=== PATIENT | female | born 1950 | race Caucasian/White ===

== ENCOUNTER 2020-02-12 07:36 | Inpatient (IN) | payer OTHER ==
[~2020-02-12] VITALS: Ht 149.9 cm; Wt 44.0 kg
== END 2020-02-24 15:33 | disposition home or self-care (01) | DRG 373 ==
LOC: ER 07:36 → SEC-K 15:28 → SURH 15:28 → EDBD 02-24 15:33
PROVIDERS: ADMIT Surgery; ATTEND Surgery
PROC: BW21Y0Z Computerized Tomography (CT Scan) of Abdomen and Pelvis using Other Contrast, Unenhanced and Enhanced (ICD-10-PCS; principal; 2020-02-12)
PROC: 02HV33Z Insertion of Infusion Device into Superior Vena Cava, Percutaneous Approach (ICD-10-PCS; 2020-02-13)
PROC: 3E0436Z Introduction of Nutritional Substance into Central Vein, Percutaneous Approach (ICD-10-PCS; 2020-02-13)
DX: K35.32 Acute appendicitis with perforation, localized peritonitis, and gangrene, without abscess (principal); R10.31 Right lower quadrant pain; Z03.818 Encounter for observation for suspected exposure to other biological agents ruled out

== ENCOUNTER 2020-03-23 07:20 | Outpatient (CLI) | payer OTHER | END 2020-03-23 07:24 | disposition home or self-care (01) | LOC: TOM 07:20 → EDBD 07:20 → TOM 07:24 | PROVIDERS: ATTEND Surgery | DX: K36 Other appendicitis (principal) | CPT/HCPCS: 74177; Q9965 ==

== ENCOUNTER 2020-04-26 05:55 | Day surgery (SDC) | payer OTHER | END 2020-04-26 12:55 | disposition home or self-care (01) | LOC: CIR.AMB 05:55 → EDBD 05:55 → CIR.AMB 07:00 → EDBD 09:00 → CIR.AMB 12:55 | PROVIDERS: ATTEND Surgery | DX: K35.32 Acute appendicitis with perforation, localized peritonitis, and gangrene, without abscess (principal); Z20.828 Contact with and (suspected) exposure to other viral communicable diseases ==

== ENCOUNTER 2024-06-23 06:22 | Day surgery (SDC) | payer OTHER ==
[2024-06-17 10:13] LABS: INR 0.96; PARTIAL THROMBOPLASTIN TIME 29.2 SECONDS (22.0-34.0); PROTHROMBIN TIME 10.5 SECONDS (9.0-11.5)
[2024-06-17 10:15] LABS: ALBUMIN 3.8 gm/dL (3.4-5.0); BILIRUBIN TOTAL 0.37 mg/dL (0.3-1.2); CALCIUM 9.1 mg/dL (8.5-10.1); CREATININE SERUM 0.62 mg/dL (0.55-1.02); GFR 94.35; GLOBULINA 3.6 G/DL (2.4-3.5); POTASSIUM 3.97 mEq/L (3.5-5.1); TOTAL PROTEIN 7.4 gm/dL (6.4-8.2)
[2024-06-23] MEDS ORDERED: CEFAZOLIN SODIUM 1,000 MG VIAL IV ONE (12:30)
[2024-06-23] MEDS ORDERED: FAMOTIDINE/PF 20 MG/10 ML SYRINGE IV SCH (13:30)
[2024-06-23] MEDS ORDERED: CEFAZOLIN SODIUM 1,000 MG VIAL IV SCH (13:30)
[2024-06-23] MEDS ORDERED: MORPHINE SULFATE 2 MG/ML CARTRIDGE IV ONE (13:35)
== END 2024-06-23 15:20 | disposition home or self-care (01) ==
LOC: CIR.AMB 06:22
PROVIDERS: ATTEND Specialist
DX: C50.812 Malignant neoplasm of overlapping sites of left female breast (principal); N60.82 Other benign mammary dysplasias of left breast

== ENCOUNTER 2024-11-20 06:00 | Day surgery (SDC) | payer OTHER ==
[2024-11-17 10:58] VITALS: BP 109/71
[~2024-11-20] VITALS: Ht 149.9 cm; Wt 47.6 kg
[2024-11-20] MEDS ORDERED: CEFAZOLIN SODIUM 1,000 MG VIAL ONE ×2 (07:49→08:58)
[2024-11-20] MEDS ORDERED: CHLORHEXIDINE GLUCONATE 120 ML BOTTLE TOP ONE (07:49)
[2024-11-20] MEDS ORDERED: POVIDONE-IODINE 118 ML BOTT TOP ONE ×2 (08:34→08:59)
[2024-11-20] MEDS ORDERED: POVIDONE-IODINE SCRUB 118 ML BOTT TOP ONE (08:34)
[2024-11-20] MEDS ORDERED: GENTAMICIN SULFATE 40 MG/ML VIAL ONE (08:58)
[2024-11-20] MEDS ORDERED: VANCOMYCIN HCL 1,000 MG VIAL ONE (08:58)
[2024-11-20] MEDS ORDERED: MORPHINE SULFATE 2 MG/ML CARTRIDGE IV ONE ×2 (12:00→12:30)
== END 2024-11-20 16:50 | disposition home or self-care (01) ==
LOC: CIR.AMB 06:00
PROVIDERS: ATTEND Surgery
DX: C50.412 Malignant neoplasm of upper-outer quadrant of left female breast (principal); C50.212 Malignant neoplasm of upper-inner quadrant of left female breast; Z90.12 Acquired absence of left breast and nipple; R59.0 Localized enlarged lymph nodes; H52.10 Myopia, unspecified eye; H52.4 Presbyopia; M81.0 Age-related osteoporosis without current pathological fracture
CPT/HCPCS: 19303; 38525; 19357; 15777; L8600